=== PATIENT | female | born 1975 | race Caucasian/White ===

== ENCOUNTER 2018-04-30 18:06 | Emergency (ER) | payer BC, OTHER ==
[2018-04-30] MEDS: CHLORDIAZEPOXIDE 25 MG CAP PO (18:42)
== END 2018-04-30 19:56 | disposition home or self-care (01) ==
LOC: E/R 19:56
DX: F10.129 Alcohol abuse with intoxication, unspecified (principal); F41.9 Anxiety disorder, unspecified; I10 Essential (primary) hypertension
CPT/HCPCS: 99283; 99283-25